=== PATIENT | female | born 1945 | race Two or more races ===

== ENCOUNTER 2016-07-18 17:16 | Emergency (ER) | payer MEDICARE, OTHER ==
[~2016-07-18] VITALS: Ht 149.9 cm; Wt 75.4 kg
[2016-07-18 17:48] LABS: Basophils # (auto) 0.1 uL; Basophils % (auto) 0.7 % (0.0-2.0); Eosinophils # (auto) 0.1 uL; Eosinophils % (auto) 1.2 % (0.0-7.0); Hemoglobin 14.4 g/dL (12.2-16.2); Lymphocytes # (auto) 2.7 uL; Lymphocytes % (auto) 27.9 % (10.0-50.0); Mean Corpuscular Hemoglobin 30.8 pg (28.0-32.0); Mean Corpuscular Hgb Conc. 32.6 g/dL (32.0-36.0); Mean Corpuscular Volume 94.4 fL (80.0-100.0); Mean Platelet Volume 7.4 fL (7.4-10.4); Monocytes # (auto) 0.5 uL; Monocytes % (auto) 5.2 % (0.0-12.0); Neutrophils # (auto) 6.3 uL; Platelet Count (auto) 395 10^3/uL (140-450); Red Cell Distribution Width 13.3 % (11.6-16.0); White Blood Cell 9.6 10^3/uL (4.4-10.8)
[2016-07-18 18:22] LABS: Albumin 3.6 g/dL (3.4-5.0); BUN/Creatinine Ratio 16.5; Calcium 8.5 mg/dL (8.5-10.1); Potassium 3.9 mmol/L (3.5-5.1)
[2016-07-18 18:25] LABS: Bilirubin, Total 0.4 mg/dL (0.2-1.0); Total Protein 7.9 g/dL (6.4-8.2)
[2016-07-18 21:23] VITALS: BP 132/93
== END 2016-07-18 22:42 | disposition left against medical advice (07) ==
LOC: ER 17:21
DX: S00.81XA Abrasion of other part of head, initial encounter (principal); R51 Headache; D35.2 Benign neoplasm of pituitary gland; W19.XXXA Unspecified fall, initial encounter; Y93.89 Activity, other specified; Y92.89 Other specified places as the place of occurrence of the external cause; Y99.8 Other external cause status
CPT/HCPCS: 36415; 70450; 80053; 84484; 85025; 93005